=== PATIENT | male | born 1980 | race Caucasian/White ===

== ENCOUNTER 2016-10-11 17:06 | Emergency (ER) | payer OTHER ==
[~2016-10-11] VITALS: Ht 172.7 cm; Wt 85.9 kg
[2016-10-11 17:12] VITALS: TEMP 99
[2016-10-11] MEDS ORDERED: LEXAPRO20 MG PO (17:15)
[2016-10-11] MEDS ORDERED: MIRTAZAPINE7.5 MG (17:15)
[2016-10-11] MEDS ORDERED: LAMICTAL200 MG PO (17:15)
[2016-10-11 18:04] LABS: BASO % 0.4 % (0.0-2.0); EOS # 0.1 (0.0-0.7); EOS % 1.2 % (0-4.0); GRAN # 5.4 (1.4-6.5); GRAN % 60.3 % (42.2-75.2); HEMATOCRIT 47.3 % (42.0-52.0); HEMOGLOBIN 15.6 g/dl (13.5-18.0); LYMPH # 2.8 (1.2-3.4); LYMPH % 30.8 % (20.0-51.0); MEAN CELL VOLUME 90 fl (80.0-100.0); MEAN CORPUSCULAR HEMOGLOBIN 30 pg (27.0-31.0); MEAN CORPUSCULAR HGB CONC 33 g/dl (33.0-37.0); MEAN PLATELET VOLUME 11.4 fl (7.4-10.4); MONO # 0.6 (0.1-0.6); MONO % 6.5 % (1.7-9.3); PLATELET COUNT 212 K/mm3 (130-400); RED BLOOD COUNT 5.24 M/mm3 (4.20-5.60); REDCELL DISTRIBUTION WIDTH-CV 12.5 % (11.5-14.5); WHITE BLOOD COUNT 8.9 K/mm3 (4.8-10.8)
[2016-10-11 18:20] LABS: ADJUSTED CALCIUM 10.5 mg/dL (8.4-10.2); ALANINE AMINOTRANSFERASE 37 U/L (21-72); ALBUMIN 4.1 gm/dL (3.5-5.0); ALKALINE PHOSPHATASE 62 U/L (50-136); ANION GAP 13 mmol/L (7-16); BILIRUBIN,TOTAL 0.6 mg/dL (0.0-1.0); BLOOD UREA NITROGEN 19 mg/dL (9-20); CALCIUM 10.6 mg/dL (8.4-10.2); CARBON DIOXIDE 25 mmol/L (22-30); CHLORIDE 104 mmol/L (98-107); CREATININE, serum 0.93 mg/dL (0.66-1.25); GLUCOSE 170 mg/dL (74-106); POTASSIUM 3.8 mmol/L (3.4-5.0); SODIUM 142 mmol/L (137-145)
[2016-10-11 18:26] LABS: C-REACTIVE PROTEIN < 0.5 mg/dL (0.0-0.9)
[2016-10-11 18:34] LABS: PROLACTIN 12.9 ng/mL (3.7-17.9)
[2016-10-11] MEDS ORDERED: LAMICTAL 100MG100 MG PO (20:21)
[2016-10-11 20:34] VITALS: BP 117/64; PULSE 62
== END 2016-10-11 20:35 | disposition home or self-care (01) ==
LOC: COL.ER 17:06
PROVIDERS: Emergency Medicine
DX: R51 Headache (principal); G40.909 Epilepsy, unspecified, not intractable, without status epilepticus; F17.210 Nicotine dependence, cigarettes, uncomplicated; F32.9 Major depressive disorder, single episode, unspecified
CPT/HCPCS: J1170; J1885; J2405; J7030

== ENCOUNTER 2016-12-29 18:04 | Emergency (ER) | payer OTHER ==
[~2016-12-29] VITALS: Ht 172.7 cm; Wt 85.0 kg
[~2016-12-29 18:04] MED LIST: LAMICTAL 100MG100 MG PO; LAMICTAL200 MG PO; LEXAPRO20 MG PO; MIRTAZAPINE7.5 MG
[2016-12-29 18:09] VITALS: TEMP 98.3
[2016-12-29 19:20] LABS: BASO # 0.1 (0.0-0.2); BASO % 0.6 % (0.0-2.0); EOS # 0.1 (0.0-0.7); EOS % 0.7 % (0-4.0); GRAN # 4.7 (1.4-6.5); GRAN % 55.8 % (42.2-75.2); HEMOGLOBIN 14.9 g/dl (13.5-18.0); LYMPH % 35.5 % (20.0-51.0); MEAN CELL VOLUME 92 fl (80.0-100.0); MEAN CORPUSCULAR HEMOGLOBIN 30 pg (27.0-31.0); MEAN CORPUSCULAR HGB CONC 32 g/dl (33.0-37.0); MEAN PLATELET VOLUME 11.4 fl (7.4-10.4); MONO # 0.6 (0.1-0.6); MONO % 6.9 % (1.7-9.3); PLATELET COUNT 212 K/mm3 (130-400); RED BLOOD COUNT 5.03 M/mm3 (4.20-5.60); REDCELL DISTRIBUTION WIDTH-CV 12.7 % (11.5-14.5); WHITE BLOOD COUNT 8.3 K/mm3 (4.8-10.8)
[2016-12-29 19:31] LABS: ADJUSTED CALCIUM 9.9 mg/dL (8.4-10.2); ALBUMIN 4.7 gm/dL (3.5-5.0); BILIRUBIN,TOTAL 0.7 mg/dL (0.0-1.0); CALCIUM 10.5 mg/dL (8.4-10.2); CREATININE, serum 1.01 mg/dL (0.66-1.25); POTASSIUM 4.4 mmol/L (3.4-5.0); TOTAL PROTEIN 7.4 gm/dL (6.4-8.2)
[2016-12-29 19:47] LABS: PROLACTIN 13.5 ng/mL (3.7-17.9)
[2016-12-29 21:16] LABS: PH 6 (5-8); SQUAMOUS EPITHELIAL None Seen /hpf; URINE BACTERIA Rare /hpf; URINE BILIRUBIN Negative (NEGATIVE); URINE BLOOD Negative (NEGATIVE); URINE COLOR Yellow; URINE GLUCOSE Negative (NEGATIVE); URINE KETONE Negative (NEGATIVE); URINE RBC 0-2 /hpf; URINE UROBILINOGEN Negative (NEGATIVE); URINE WBC 0-2 /hpf
[2016-12-29 21:17] LABS: URINE APPEARANCE Hazy
[2016-12-29 23:27] VITALS: BP 104/73; PULSE 63
== END 2016-12-29 23:27 | disposition home or self-care (01) ==
LOC: COL.ER 18:04
PROVIDERS: Emergency Medicine
DX: G40.909 Epilepsy, unspecified, not intractable, without status epilepticus (principal); R51 Headache; W18.39XA Other fall on same level, initial encounter; Y92.009 Unspecified place in unspecified non-institutional (private) residence as the place of occurrence of the external cause
CPT/HCPCS: J0780; J1200; J1953; J3010; J7030

== ENCOUNTER 2017-04-19 17:46 | Emergency (ER) | payer OTHER ==
[~2017-04-19] VITALS: Ht 172.7 cm; Wt 85.9 kg
[2017-04-19 17:51] VITALS: PULSE 79; TEMP 98.3
[2017-04-19] MEDS ORDERED: KEPPRA 500MG500 MG PO (17:55)
[2017-04-19] MEDS ORDERED: FIORINAL 325 MG1 CAP PO (17:58)
[2017-04-19] MEDS ORDERED: NICORETTE GUM2 MG PO (17:59)
[2017-04-19] MEDS ORDERED: LAMICTAL XR300 MG PO (18:09)
[2017-04-19 18:44] LABS: BASO # 0.1 (0.0-0.2); BASO % 0.9 % (0.0-2.0); EOS # 0.1 (0.0-0.7); EOS % 1.3 % (0-4.0); GRAN # 5.6 (1.4-6.5); GRAN % 57.7 % (42.2-75.2); HEMATOCRIT 45.9 % (42.0-52.0); HEMOGLOBIN 15.6 g/dl (13.5-18.0); LYMPH % 30.5 % (20.0-51.0); MEAN CELL VOLUME 91 fl (80.0-100.0); MEAN CORPUSCULAR HEMOGLOBIN 31 pg (27.0-31.0); MEAN CORPUSCULAR HGB CONC 34 g/dl (33.0-37.0); MEAN PLATELET VOLUME 11.6 fl (7.4-10.4); MONO # 0.8 (0.1-0.6); MONO % 7.8 % (1.7-9.3); PLATELET COUNT 192 K/mm3 (130-400); RED BLOOD COUNT 5.07 M/mm3 (4.20-5.60); REDCELL DISTRIBUTION WIDTH-CV 12.3 % (11.5-14.5)
[2017-04-19 18:54] LABS: ALBUMIN 4.7 gm/dL (3.5-5.0); BILIRUBIN,TOTAL 0.4 mg/dL (0.0-1.0); CALCIUM 9.8 mg/dL (8.4-10.2); CREATININE, serum 0.87 mg/dL (0.66-1.25); TOTAL PROTEIN 7.4 gm/dL (6.4-8.2)
[2017-04-19 19:10] LABS: PROLACTIN 15.2 ng/mL (3.7-17.9)
[2017-04-19 19:53] VITALS: BP 119/78
== END 2017-04-19 19:53 | disposition home or self-care (01) ==
LOC: COL.ER 17:46
PROVIDERS: Emergency Medicine
DX: G40.909 Epilepsy, unspecified, not intractable, without status epilepticus (principal); M25.552 Pain in left hip; M25.512 Pain in left shoulder; M25.562 Pain in left knee; F17.210 Nicotine dependence, cigarettes, uncomplicated; Z90.89 Acquired absence of other organs; X58.XXXA Exposure to other specified factors, initial encounter
CPT/HCPCS: J1885; J2060; J2405; J3010

== ENCOUNTER 2017-05-28 02:53 | Emergency (ER) | payer OTHER ==
[~2017-05-28] VITALS: Ht 172.7 cm; Wt 86.4 kg
[~2017-05-28 02:53] MED LIST changes: +FIORINAL 325 MG1 CAP PO; +KEPPRA 500MG500 MG PO; +LAMICTAL XR300 MG PO; +NICORETTE GUM2 MG PO
[2017-05-28 03:01] VITALS: TEMP 97.8
[2017-05-28] MEDS ORDERED: BRIVIACT25 MG PO ×2 (03:04→05:55)
[2017-05-28 03:59] LABS: BASO # 0.1 (0.0-0.2); BASO % 1.1 % (0.0-2.0); EOS # 0.2 (0.0-0.7); EOS % 1.8 % (0-4.0); GRAN # 4.7 (1.4-6.5); GRAN % 50.6 % (42.2-75.2); HEMATOCRIT 45.7 % (42.0-52.0); HEMOGLOBIN 15.4 g/dl (13.5-18.0); LYMPH # 3.4 (1.2-3.4); LYMPH % 37.1 % (20.0-51.0); MEAN CELL VOLUME 91 fl (80.0-100.0); MEAN CORPUSCULAR HEMOGLOBIN 31 pg (27.0-31.0); MEAN CORPUSCULAR HGB CONC 34 g/dl (33.0-37.0); MEAN PLATELET VOLUME 11.4 fl (7.4-10.4); MONO # 0.8 (0.1-0.6); MONO % 8.3 % (1.7-9.3); PLATELET COUNT 202 K/mm3 (130-400); RED BLOOD COUNT 5.02 M/mm3 (4.20-5.60); REDCELL DISTRIBUTION WIDTH-CV 12.3 % (11.5-14.5)
[2017-05-28 04:09] LABS: ALBUMIN 4.6 gm/dL (3.5-5.0); BILIRUBIN,TOTAL 0.4 mg/dL (0.0-1.0); CALCIUM 10.4 mg/dL (8.4-10.2); CREATININE, serum 1.11 mg/dL (0.66-1.25); POTASSIUM 3.9 mmol/L (3.4-5.0); TOTAL PROTEIN 7.3 gm/dL (6.4-8.2)
[2017-05-28 04:25] LABS: PROLACTIN 13.8 ng/mL (3.7-17.9)
[2017-05-28 06:29] VITALS: BP 106/75; PULSE 73
== END 2017-05-28 06:31 | disposition home or self-care (01) ==
LOC: COL.ER 02:53
PROVIDERS: Emergency Medicine
DX: G40.909 Epilepsy, unspecified, not intractable, without status epilepticus (principal); S40.012A Contusion of left shoulder, initial encounter; G43.909 Migraine, unspecified, not intractable, without status migrainosus; W10.9XXA Fall (on) (from) unspecified stairs and steps, initial encounter
CPT/HCPCS: J1885; J2060; J7030